=== PATIENT | female | born 1955 | race Caucasian/White ===

== ENCOUNTER 2023-06-03 09:39 | Emergency (ER) | payer OTHER ==
[~2023-06-03] VITALS: Ht 162.6 cm; Wt 80.1 kg
[2023-06-03 09:56] VITALS: BP 174/73; PULSE 98; RESP 20; O2SAT 100
[2023-06-03] MEDS ORDERED: CLIN150C PO (10:14)
== END 2023-06-03 10:23 | disposition home or self-care (01) ==
LOC: MERGE 09:39 → ER 09:39
DX: R04.0 Epistaxis (principal); I10 Essential (primary) hypertension; E78.5 Hyperlipidemia, unspecified; Z88.0 Allergy status to penicillin; Z88.8 Allergy status to other drugs, medicaments and biological substances; Z79.899 Other long term (current) drug therapy
CPT/HCPCS: 30901